=== PATIENT | male | born 1990 | race Caucasian/White ===

== ENCOUNTER 2017-06-02 15:43 | Emergency (ER) | payer OTHER ==
[2017-06-02 16:04] VITALS: BP 137/85
--- NOTE | 2017-06-02 17:53 | ED Physician Documentation ---
History of Present Illness - Stated complaint Stated Complaint: BACK PX/MALE - Chief complaint Chief Complaint: Back Pain - History obtained from History obtained from: Patient - History of Present Illness Timing: How many days ago (6) Pain level max: 4 Pain level now: 4 - Additonal information Additional information: Patient is a 27-year-old male with a long-standing history of chronic back pain. Underwent back surgery approximately [address] emery. Had a spinal epidural injection approximately 6 days ago, since that time he has had urinary incontinence after urinating. He states that when he stands up he loses control of his urine. Saw his doctor, Dr. Quiroz, orthopedics at the [facility] he wanted an MRI but there were issues with the referral system so was sent here for MRI. He has chronic numbness and tingling in his legs. This is unchanged. Review of Systems Ten Systems: 10 systems reviewed and negative Constitutional: denies: Fever, Chills Ears: denies: Ear pain Nose: denies: Rhinorrhea / runny nose, Congestion Throat: denies: Sore throat Cardiac: denies: Chest pain / pressure Respiratory: denies: Cough GI: denies: Nausea, Vomiting, Diarrhea Skin: denies: Rash Musculoskeletal: denies: Neck pain Neurologic: denies: Headache PD PAST MEDICAL HISTORY - Past Medical History Past Medical History: Yes Musculoskeletal: Chronic back pain - Past Surgical History Past Surgical History: Yes Ortho: Spine surgery - Present Medications Home Medications: Ambulatory Orders Medication Instructions Recorded Confirmed No Known Home Medications [No 06/02/17 06/02/17 Known Home Medications] - Allergies Allergies/Adverse Reactions: Allergies Allergy/AdvReac Type Severity Reaction Status Date / Time No Known Drug Allergies Allergy Verified 06/09/15 18:17 - Social History Does the pt smoke?: No Smoking Status: Never smoker Does the pt drink ETOH?: No Does the pt have substance abuse?: No - Immunizations Immunizations are current?: Yes - POLST Patient has POLST: No PD ED PE NORMAL - Vitals Vital signs reviewed: Yes - General General: Alert and oriented X 3, No acute distress - HEENT HEENT: Moist mucous membranes - Neck Neck: Supple, no meningeal sign - Cardiac Cardiac: RRR, Strong equal pulses - Respiratory Respiratory: No respiratory distress, Clear bilaterally - Abdomen Abdomen: Soft, Non tender, Non distended - Back Back: No spinal TTP - Derm Derm: Warm and dry - Extremities Extremities: Other (decreased sensation over the entire B LE. pt states chronic. declines rectal.) - Neuro Neuro: Alert and oriented X 3 - Psych Psych: Normal mood, Normal affect Results - Vitals Vitals: Vital Signs - 24 hr 06/02/17 16:01 Temperature 36.2 C L Heart Rate 76 Respiratory 18 Rate Blood Pressure 137/85 H O2 Saturation 98 Oxygen O2 Source Room air PD MEDICAL DECISION MAKING - ED course Complexity details: reviewed old records, considered differential, d/w patient, d/w senior market intelligence consultant ED course: Patient is a 27-year-old male who presents to the emergency department with a request from his orthopedic surgeon for an emergent MRI for possible cauda equina. MRI is not available here [facility]. Discussed the case with Dr. Quiroz at [phone] who recommends trying to transfer to [facility] for an MRI. Discussed the case with Dr. Hurst [id number], emergency department physician at [facility] who graciously accepts in transfer. Patient transferred [facility] for further assessment. This document was made in part using voice recognition software. While efforts are made to proofread this document, sound alike and grammatical errors may occur. Departure - Departure Disposition: 02 Transfer Acute Care Hosp Clinical Impression: Back pain Qualifiers: Back pain location: low back pain Chronicity: unspecified Back pain laterality : bilateral Sciatica presence: with sciatica Sciatica laterality: bilateral sciatica Qualified Code(s): M54.42 - Lumbago with sciatica, left side; M54.41 - Lumbago with sciatica, right side; M54.41 - Lumbago with sciatica, right side Urinary incontinence Qualifiers: Urinary Incontinence type: unspecified incontinence Qualified Code(s): R32 - Unspecified urinary incontinence Condition: Good Comments: Go directly to the Emergency Department at [facility].
== END 2017-06-02 18:10 | disposition short-term general hospital (02) ==
LOC: ED 15:43
DX: M54.41 Lumbago with sciatica, right side (principal); M54.42 Lumbago with sciatica, left side; R32 Unspecified urinary incontinence; G89.29 Other chronic pain; Z98.890 Other specified postprocedural states
CPT/HCPCS: 99282; 99283

== ENCOUNTER 2018-01-29 20:42 | Outpatient (CLI) | payer OTHER | END 2018-01-29 20:43 | disposition short-term general hospital (02) | LOC: EMS 20:42 | PROVIDERS: ATTEND Surgery | DX: R07.9 Chest pain, unspecified (principal) | CPT/HCPCS: A0425; A0427 ==

== ENCOUNTER 2018-06-19 12:41 | Emergency (ER) | payer OTHER ==
[2018-06-19] MEDS ORDERED: PROPARACAINE 0.5% OPHTH DROPS 15 ML LEFTEYE STA (12:59)
[2018-06-19] MEDS ORDERED: levoFLOXacin 0.5% OPHTH DROPS 5 ML LEFTEYE STA (13:35)
--- NOTE | 2018-06-19 13:38 | ED Physician Documentation ---
PD HPI OPHTHO - Stated complaint Stated Complaint: LT EYE IRRATION/FOB - Chief complaint Chief Complaint: Heent - History obtained from History obtained from: Patient - History of Present Illness Timing - onset: Other (Grinding metal at home a few days ago while wearing eye protection and feels like something is stuck on the left eye with slightly decreased vision.) Review of Systems Constitutional: reports: Reviewed and negative Eyes: reports: Decreased vision, Photophobia, Discharge, Irritation. denies: Loss of vision Ears: reports: Reviewed and negative PD PAST MEDICAL HISTORY - Past Medical History Past Medical History: Yes Musculoskeletal: Chronic back pain - Past Surgical History Past Surgical History: Yes Ortho: Spine surgery - Present Medications Home Medications: Ambulatory Orders Medication Instructions Recorded Confirmed Hydrocodone/Acetaminophen 1 - 2 each PO Q6H PRN #14 tablet 06/19/18 [Hydrocodon-Acetaminophen 5-325] levoFLOXacin 0.5% OPHTH DROPS 1 drops OPTH Q2H #1 bottle 06/19/18 [Quixin Ophth Drops] - Allergies Allergies/Adverse Reactions: Allergies Allergy/AdvReac Type Severity Reaction Status Date / Time No Known Drug Allergies Allergy Verified 06/19/18 12:49 - Social History Does the pt smoke?: No Smoking Status: Never smoker Does the pt drink ETOH?: No Does the pt have substance abuse?: No - Immunizations Immunizations are current?: Yes - POLST Patient has POLST: No PD ED PE NORMAL - Vitals Vital signs reviewed: Yes - General General: Alert and oriented X 3, No acute distress - HEENT HEENT: Other (Left conjunctiva is red and there is a clearly seen metallic rust ring just inferolateral to the visual axis on the cornea.) - Neck Neck: Supple, no meningeal sign, No bony TTP - Neuro Neuro: Alert and oriented X 3, Normal speech Results - Vitals Vitals: Vital Signs - 24 hr 06/19/18 12:46 Temperature 35.6 C L Heart Rate 81 Respiratory 16 Rate Blood Pressure 146/86 H O2 Saturation 99 Oxygen O2 Source Room air Procedures - General procedure General procedure: Corneal foreign body and rust ring were removed using a 30-gauge needle and he tolerated this well. Departure - Departure Disposition: 01 Home, Self Care Clinical Impression: Corneal foreign body with residual material Qualifiers: Encounter type: initial encounter Laterality: left Qualified Code(s): T15.02XA - Foreign body in cornea, left eye, initial encounter Condition: Good Record reviewed to determine appropriate education?: Yes Instructions: ED Foreign Body Cornea W Rust Ring Prescriptions: Hydrocodone/Acetaminophen [Hydrocodon-Acetaminophen 5-325] 1 - 2 each PO Q6H PRN #14 tablet PRN Reason: pain levoFLOXacin 0.5% OPHTH DROPS [Quixin Ophth Drops] 1 drops OPTH Q2H #1 bottle Comments: [place] Return for new or worsening symptoms. Your blood pressure was elevated today on check into the emergency department. This does not mean that you have hypertension, it is a common phenomenon to come to the emergency department and have elevated blood pressure. I recommend that you see your primary care physician within the week to have it rechecked when you are feeling better.
[2018-06-19 13:52] VITALS: BP 132/89
== END 2018-06-19 13:52 | disposition home or self-care (01) ==
LOC: ED 12:41
DX: T15.02XA Foreign body in cornea, left eye, initial encounter (principal); W22.8XXA Striking against or struck by other objects, initial encounter; Y92.009 Unspecified place in unspecified non-institutional (private) residence as the place of occurrence of the external cause; R03.0 Elevated blood-pressure reading, without diagnosis of hypertension
CPT/HCPCS: 65435; 99283; A9270; J3490